=== PATIENT | male | born 1965 | race Caucasian/White ===

== ENCOUNTER 2017-01-08 13:33 | Emergency (ER) | payer OTHER ==
[2017-01-08] MEDS ORDERED: MORPHINE SULFATE 4 MG/ML SYRINGE ONE (14:20)
--- NOTE | 2017-01-08 14:39 | RAD ---
History: Back pain with dyspnea. Comparison: None. Technique: 2 views Findings: Multilevel thoracic degenerative changes are present. The heart size within expected. Minimal linear left basilar atelectasis or scarring is seen. No gross consolidation, effusion or pneumothorax is seen. Impression: 1. Minimal left basilar atelectasis or scarring. 2. No active intrathoracic process.
[2017-01-08 14:44] LABS: URINE BILIRUBIN NEGATIVE (NEGATIVE); URINE BLOOD NEGATIVE (NEGATIVE); URINE GLUCOSE (UA) NEGATIVE (NEGATIVE); URINE LEUKOCYTE ESTERASE NEGATIVE (NEGATIVE); URINE NITRITE NEGATIVE (NEGATIVE); URINE PROTEIN NEGATIVE (NEGATIVE); URINE UROBILINOGEN NORMAL (0-1 mg/dl)
[2017-01-08 14:45] LABS: ABSOLUTE NEUTROPHIL COUNT 6.2 K/mm3 (1.8-7.7); BASO # 0.1 K/mm3 (0.0-0.2); BASO % 0.6 % (0.2-1.0); EOS # 0.2 (0.0-0.5); EOS % 2.4 % (0.9-2.9); HEMATOCRIT 39.5 % (32.0-52.0); HEMOGLOBIN 13.7 gm/l (14.0-18.0); IMM NEUT% 0.4 % (0-1); LYMPH # 2.5 (1.0-4.8); LYMPH % 25.7 % (15-45); MEAN CELL VOLUME 84.2 fl (80.0-94.0); MEAN CORPUSCULAR HEMOGLOBIN 29.2 pg (27.0-31.0); MEAN CORPUSCULAR HGB CONC 34.7 g/dl (33.0-37.0); MEAN PLATELET VOLUME 9.7 fl (7.4-10.4); MONO # 0.7 (0.0-0.8); MONO % 7.2 % (4-12); NEUT % 63.7 % (43-75); PLATELET COUNT 249 K/mm3 (130-400); RED CELL DISTRIBUTION WIDTH 13.1 % (11.5-14.5)
[2017-01-08 14:52] LABS: URINE APPEARANCE CLEAR; URINE COLOR DARK YELLOW
[2017-01-08 15:03] LABS: ALB/GLOB RATIO 1.5 (>1.0); ALBUMIN 4.3 gm/dL (3.5-5.7); CALCIUM 9.8 mg/dL (8.6-10.3)
[2017-01-08] MEDS ORDERED: KETOROLAC TROMETHAMINE 30 MG/ML 1 ML VIAL ONE (15:36)
[2017-01-08] MEDS ORDERED: DIAZEPAM 5 MG/ML SYRINGE 2 ML ONE (15:38)
== END 2017-01-08 15:57 | disposition home or self-care (01) ==
LOC: ED 13:33
DX: M54.9 Dorsalgia, unspecified (principal); R11.10 Vomiting, unspecified; R06.02 Shortness of breath; F17.210 Nicotine dependence, cigarettes, uncomplicated